=== PATIENT | male | born 1965 | race Caucasian/White ===

== ENCOUNTER 2016-12-27 11:54 | Emergency (ER) | payer OTHER ==
[~2016-12-27] VITALS: Ht 167.6 cm; Wt 65.8 kg
[~2016-12-27 11:54] MED LIST: HYDR-3326 PO; IBUP-1482 PO
--- NOTE | 2016-12-27 12:29 | NUR ---
MSE COMPLETED, PT D/C'D HOME, RX X2 GIVEN. PT AMBULATED W/O DIFF WITH SIGNIFICANT OTHER, TOOK ALL BELONGINGS.
[2016-12-27] MEDS ORDERED: HYDROCODONE/APAP 10-325 MG TABLET PO ONE (12:30)
[2016-12-27] MEDS ORDERED: HYDROCODONE/APAP 10-325 MG TABLET ONE (12:31)
[2016-12-27 12:32] VITALS: BP 121/68
== END 2016-12-27 12:33 | disposition home or self-care (01) ==
LOC: ER 11:58
DX: M10.9 Gout, unspecified (principal); F10.20 Alcohol dependence, uncomplicated; F17.200 Nicotine dependence, unspecified, uncomplicated; F19.10 Other psychoactive substance abuse, uncomplicated; Z59.0 Homelessness
CPT/HCPCS: A4663

== ENCOUNTER 2017-01-05 17:46 | Emergency (ER) | payer OTHER ==
[~2017-01-05] VITALS: Ht 175.3 cm; Wt 72.6 kg
--- NOTE | 2017-01-05 19:38 | NUR ---
Patient discharged to home in stable conditon. Written and verbal after care instructions given. Patient verbalizes understanding of instructions.
== END 2017-01-05 19:39 | disposition home or self-care (01) ==
LOC: ER 17:48
DX: M10.9 Gout, unspecified (principal); F10.20 Alcohol dependence, uncomplicated; F17.200 Nicotine dependence, unspecified, uncomplicated; F19.10 Other psychoactive substance abuse, uncomplicated; Z59.0 Homelessness
CPT/HCPCS: A4663

== ENCOUNTER 2017-01-09 12:09 | Emergency (ER) | payer OTHER ==
[~2017-01-09] VITALS: Ht 170.2 cm; Wt 72.6 kg
--- NOTE | 2017-01-09 13:49 | NUR ---
at bedside examining patient.
[2017-01-09] MEDS ORDERED: HYDROCODONE/APAP 10-325 MG TABLET PO ONE (14:15)
[2017-01-09] MEDS ORDERED: predniSONE 20 MG TABLET PO ONE (14:15)
== END 2017-01-09 14:17 | disposition home or self-care (01) ==
LOC: ER 12:09
DX: M10.9 Gout, unspecified (principal); F10.20 Alcohol dependence, uncomplicated; F17.200 Nicotine dependence, unspecified, uncomplicated; F19.10 Other psychoactive substance abuse, uncomplicated; Z59.0 Homelessness
CPT/HCPCS: A4663

== ENCOUNTER 2017-03-15 14:48 | Emergency (ER) | payer MEDICAID ==
[~2017-03-15] VITALS: Ht 167.6 cm; Wt 68.0 kg
--- NOTE | 2017-03-15 14:55 | NUR ---
DR SEVILLA AT THE BEDSIDE FOR EVAL AND EXAM.
--- NOTE | 2017-03-15 14:59 | NUR ---
Patient eloped from facility. ER physician notified.
[2017-03-15 15:00] VITALS: BP 118/76
[2017-03-15] MEDS ORDERED: HYDROCODONE/APAP 5-325MG TABLET PO ONE (15:00)
== END 2017-03-15 15:02 | disposition left against medical advice (07) ==
LOC: ER 14:50
DX: M10.9 Gout, unspecified (principal); F10.20 Alcohol dependence, uncomplicated; F17.200 Nicotine dependence, unspecified, uncomplicated; F19.10 Other psychoactive substance abuse, uncomplicated; Z59.0 Homelessness
CPT/HCPCS: A4663

== ENCOUNTER 2019-04-23 11:58 | Emergency (ER) | payer MEDICAID ==
[~2019-04-23] VITALS: Ht 167.6 cm; Wt 65.8 kg
[~2019-04-23 11:58] MED LIST changes: -IBUP-1482 PO; +IBUP-1957 PO
--- NOTE | 2019-04-23 12:22 | NUR ---
PATIENT WAS SEEN BY MD FOR C/I FINGER "ABCESS" AND RASH ON CHEST AND BACK. MEDICATIONS GIVEN ORDERED. i GAVE HIM A WARM MEAL OF MASHED POTATOES AND MEAT AND WATER AND DIET JUICE. HE STATE HE IS NOT HOMELESS. HE IS WEARING CLEAN CLOTHES AND CLEAN SHOES. 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
[2019-04-23] MEDS ORDERED: OXYCODONE/APAP 5-325 MG TABLET ONE (12:23)
[2019-04-23] MEDS ORDERED: SULFAMETH/TRIMETH 800/160 MG TABLET ONE (12:23)
[2019-04-23] MEDS ORDERED: NEOMY/BACITRA/POLYMYXIN B OINT UD PACKET TP ONE ×2 (12:23→12:30)
--- NOTE | 2019-04-23 12:25 | NUR ---
FINGER DRESSED WITH STERILE DRESSING AFTER APPLYING TRIPLE ABX OINTMENT.
--- NOTE | 2019-04-23 12:25 | NUR ---
DC, RX AND FOLLOW UP INSTRUCTIONS GIVEN AND EXPLAINED TO PATIENT WHO STATES HE UNDERSTANDS ALL INSTRUCTIONS.
[2019-04-23] MEDS ORDERED: OXYCODONE/APAP 5-325 MG TABLET PO ONE (12:30)
[2019-04-23] MEDS ORDERED: SULFAMETH/TRIMETH 800/160 MG TABLET PO ONE (12:30)
== END 2019-04-23 12:35 | disposition home or self-care (01) ==
LOC: ER 11:59
DX: L02.512 Cutaneous abscess of left hand (principal); B86 Scabies; L23.7 Allergic contact dermatitis due to plants, except food; F17.200 Nicotine dependence, unspecified, uncomplicated; F32.9 Major depressive disorder, single episode, unspecified; F15.10 Other stimulant abuse, uncomplicated; Z59.0 Homelessness; Z79.1 Long term (current) use of non-steroidal anti-inflammatories (NSAID); Z79.899 Other long term (current) drug therapy
CPT/HCPCS: A4663

== ENCOUNTER 2023-02-08 12:52 | Emergency (ER) | payer MEDICAID ==
[~2023-02-08] VITALS: Ht 170.2 cm; Wt 74.8 kg
--- NOTE | 2023-02-08 13:14 | NUR ---
PT IS IN ROOM #2B. DR MERINO EVALUATED THE PT.
[2023-02-08] MEDS ORDERED: PANT40TA49 PO (13:17)
[2023-02-08] MEDS ORDERED: FAMOTIDINE 20 MG TABLET ONE (13:23)
[2023-02-08] MEDS ORDERED: MAG HYDROX/AL HYDROX/SIMETH 30 ML LIQUID UDC ONE (13:24)
[2023-02-08] MEDS ORDERED: LIDOCAINE VISCUS 2% 15 ML UDC MM ONE (13:30)
[2023-02-08] MEDS ORDERED: FAMOTIDINE 20 MG TABLET PO ONE (13:30)
[2023-02-08] MEDS ORDERED: MAG HYDROX/AL HYDROX/SIMETH 30 ML LIQUID UDC PO ONE (13:30)
[2023-02-08 13:34] LABS: HEMATOCRIT 41.6 % (36.7-47.1); MEAN CORPUSCULAR HEMOGLOBIN 29.8 uug (23.8-33.4); MEAN CORPUSCULAR VOLUME 90.7 fL (73.0-96.2); PLATELET COUNT (AUTO) 206 K/uL (152-348)
[2023-02-08 14:14] LABS: BILIRUBIN,DIRECT 0.1 mg/dL (0.0-0.2); BILIRUBIN,TOTAL 0.3 mg/dL (0.2-1.0); TOTAL PROTEIN, SERUM 7.5 g/dL (6.4-8.2)
[2023-02-08] MEDS ORDERED: FAMO-132 PO (14:32)
--- NOTE | 2023-02-08 14:45 | NUR ---
PT WAS D/C'd TO HOME. D/C INSTRUCTIONS GIVEN TO THE PT BY DR MERINO.
[2023-02-08 14:47] VITALS: BP 139/75
== END 2023-02-08 14:48 | disposition home or self-care (01) ==
LOC: ER 12:52
DX: K27.9 Peptic ulcer, site unspecified, unspecified as acute or chronic, without hemorrhage or perforation (principal); K44.9 Diaphragmatic hernia without obstruction or gangrene; R07.89 Other chest pain; F17.210 Nicotine dependence, cigarettes, uncomplicated; Z79.1 Long term (current) use of non-steroidal anti-inflammatories (NSAID); Z79.899 Other long term (current) drug therapy
CPT/HCPCS: 36415; 71045; 83690; 85025; A4663